=== PATIENT | female | born 1990 ===

== ENCOUNTER 2023-11-14 14:33 | Inpatient (IN) | payer MEDICAID, OTHER ==
[2023-11-14] MEDS ORDERED: MAGNESIUM HYDROXIDE 2,400 MG/30 ML CUP PO PRN (15:24)
[2023-11-14] MEDS ORDERED: haloperidoL 5 MG TAB PO PRN (18:17)
[2023-11-14] MEDS ORDERED: LORazepam 2 MG/ML INJ IM PRN (18:17)
[2023-11-14] MEDS ORDERED: HALOPERIDOL LACTATE 5 MG/ML 1 ML VIAL IM PRN (18:17)
[2023-11-14] MEDS ORDERED: ALBUTEROL HFA INHALER INHALATION PRN (18:17)
[2023-11-14] MEDS: LORazepam 1 MG TAB PO PRN (23:34)
[2023-11-14] MEDS: IBUPROFEN 800 MG TAB PO PRN (23:34)
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
[2023-11-15] MEDS ORDERED: HALOPERIDOL LACTATE 5 MG/ML 1 ML VIAL IM PRN (09:39)
[2023-11-15] MEDS: hydrOXYzine HCL 25 MG TAB PO PRN (09:56)
[2023-11-15] MEDS: NICOTINE 21MG/24HR PATCH TRANSDERM SCH (10:34)
[2023-11-15] MEDS: ACETAMINOPHEN TAB 325 MG TAB PO PRN (10:51)
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
[2023-11-15 11:49] LABS: Basophils # (A) 0.1 k/uL (0-0.2); Basophils % (A) 1 %; Eosinophils # (A) 0.2 k/uL (0-0.7); Eosinophils % (A) 1 %; HCT 42.6 % (34.0-46.0); HGB 12.8 gm/dL (11.4-16.0); Hypochromasia Slight; Lymphocytes # (A) 3.3 k/uL (1.0-4.8); Lymphocytes % (A) 27 %; MCH 24.9 pg (25.0-35.0); MCHC 30.1 g/dL (31.0-37.0); MCV 82.6 fL (80.0-100.0); Mean Platelet Volume 7.7; Monocytes # (A) 0.6 k/uL (0-1.0); Monocytes % (A) 5 %; Neutrophils # (A) 7.7 k/uL (1.3-7.7); Neutrophils % (A) 64 %; Platelet Count 725 k/uL (150-450); RBC 5.16 m/uL (3.80-5.40); RDW 15.2 % (11.5-15.5); WBC 12.1 k/uL (3.8-10.6)
[2023-11-15 12:04] LABS: ALT 78 U/L (4-34); AST 59 U/L (14-36); African American GFR (CKD) >90 (>60 ml/min/1.73 sqM); Albumin 4.5 g/dL (3.5-5.0); Alkaline Phosphatase 103 U/L (38-126); Anion Gap 9 mmol/L; Blood Urea Nitrogen 11 mg/dL (7-17); Calcium 10.1 mg/dL (8.4-10.2); Carbon Dioxide 25 mmol/L (22-30); Chloride 104 mmol/L (98-107); Glucose 61 mg/dL (74-99); Non-African American GFR(CKD) >90 (>60 ml/min/1.73 sqM); Potassium 4.6 mmol/L (3.5-5.1); Sodium 138 mmol/L (137-145); Total Bilirubin 0.3 mg/dL (0.2-1.3); Total Protein 7.8 g/dL (6.3-8.2)
[2023-11-15] MEDS: METHADONE 10 MG TAB PO SCH (12:38)
[2023-11-15] MEDS ORDERED: hydrOXYzine HCL 25 MG TAB PO SCH (13:00)
[2023-11-15 20:54] LABS: Chol/HDL Ratio 4.82 Ratio; LDL Cholesterol,Calculated 155.9 mg/dL (0.0-131.0)
[2023-11-16] MEDS: VENLAFAXINE HCL 75 MG TAB PO SCH ×2 (08:31→17:10)
[2023-11-16] MEDS: MAG HYDROX/AL HYDROX/SIMETH 355 ML BOTTLE PO PRN (13:01)
[2023-11-16] MEDS ORDERED: VENLAFAXINE HCL 75 MG TAB PO SCH (21:00)
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
--- NOTE | 2023-11-18 09:09 | P.PN ---
Subjective Progress Note Date: 11/18/23 Principal diagnosis: Diagnosis: Major Depressive Disorder, recurrent. Rule out intermittent explosive disorder Personality disorder with borderline traits Subjective data: The patient was seen chart was reviewed and case discussed with the nursing staff Patient reports that she is doing much better and she said that she has no thoughts of wanting to hurt self and that her thoughts are staying much more positive She said that she is thinking about going into the [employer] driving course and cannot wait to get started She states that she is feeling much better emotionally Patient also has been helping another patient where she has been bathing hair of other younger patient Affect appears to be fair interacts fairly well no overt psychosis noted MSE: Alert and attentive. Orientation times three Dressed and Groomed: Appropriately. Pleasant and cooperative. Psychomotor Activity: Normal. Speech: Normal in tone, quality, and quantity. Mood: Anxious. Affect: Consistent with mood. SI or HI: None. Perceptual disturbance: None. Thought Content: No paranoia or other delusional thinking noted. Thought Process: Normal. Cognition: Intact Judgment and Insight: Improving slightly Plan and Recommendations: Effexor 75 mg po daily, Hydroxyzine 25 mg po qid prn for anxiety, reduce Haldol to 2 mg, d/c Ativan. Monitor MS and side effects of medications and adjust medications accordingly. Provide supportive psychotherapy and psychoeducation. The patient provided psychoeducation. The patient provided with substance abuse counselling and advised to attend AA/NA Smoke cessation therapy. The patient to attend [facility]. Dameon Ashford MD Objective - Vital Signs Vital signs: Vital Signs Temp 97.2 F L 11/18/23 08:24 Pulse 107 H 11/18/23 08:24 Resp 16 11/18/23 08:24 BP 116/65 11/18/23 08:24 Pulse Ox 99 11/17/23 06:00 FiO2 - Labs CBC & Chem 7: 11/15/23 09:51 11/15/23 09:51
--- NOTE | 2023-11-19 21:50 | P.PN ---
Progress Note - Text Progress Note Date: 11/19/23 Follow-up Mediation Review Chief Complaint: I have jitters after taking Effexor Subjective: The patient noted that she gets anxiety and jitters after taking Effexor. She has to take Hydroxyzine with it to slow her down. She also has difficulty sleeping. The patient has been noted to be hyper and hyperalkaline. The patient was given [place] at age 19. She stated that it helped her but made me zombie, went south and became suicidal. Suggested to discontinue Effexor due possible activating syndrome from Effexor or switch to mild manic symptoms. The patient agreed. Discussed alternated antidepressant. The patient agreed for Paxil after considering the risk/benefits and side effects. Also, Suggested Depakote for mood stabilizing. The patient consented. The patient has been attending the groups. The participation is good. The interaction with staff and peers is good. The patient is compliant with treatment recommendations. Leading questions: The patient admitted to Depression and Anxiety. Denied SI or HI. Denied symptoms consistent with psychosis Sleep and Appetite: Sleep fair to poor. Appetite fine. Change in family/ living/job/financial/daily routine: No change. Change in medical condition: No change. Change in medications: d/c Effexor. Add Paxil and Depakote. Side effects from Medications: None. Objective- MSE: Alert and attentive. Orientation times three. Dressed and Groomed: Appropriately. Pleasant and cooperative. Psychomotor Activity: Normal. Speech: Normal in tone, quality, and hyperverbal with mild push of speech. Mood: Anxious and depressed. Affect: Labile. SI or HI: None. Perceptual disturbance: None. Thought Content: No paranoia or other delusional thinking noted. Thought Process: Normal. Cognition: Intact Judgment and Insight: Fair. AIMS: Normal. Labs: No new labs. Diagnosis: Plan and Recommendations: Continue current Medications. Add Paxil 10 mg po qd. Depakote 250 mg bid. Monitor MS and side effects of medications and adjust medications accordingly. Provide supportive psychotherapy. The patient provided psychoeducation and advised The patient provided Substance abuse counseling. Smoke cessation therapy. The patient to attend newman activities. Medication Consent with explanation of risk/benefits and side effects: Explained and obtained.
[2023-11-20 07:01] VITALS: BP 132/83; PULSE 88; RESP 20; TEMP 97.7
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
[2023-11-20] MEDS ORDERED: DIVALPROEX ER 250 MG TAB.ER.24H PO SCH (21:00)
[2023-11-21] MEDS ORDERED: VENLAFAXINE HCL 75 MG TAB PO SCH (09:00)
== END 2023-11-20 12:24 | disposition home or self-care (01) | DRG 751 ==
LOC: 3MHU 23:02
PROVIDERS: ADMIT Psychiatry & Neurology Psychiatry; ATTEND Psychiatry & Neurology Psychiatry
DX: F33.2 Major depressive disorder, recurrent severe without psychotic features (principal); X78.1XXD Intentional self-harm by knife, subsequent encounter; F60.3 Borderline personality disorder; F41.9 Anxiety disorder, unspecified; F17.210 Nicotine dependence, cigarettes, uncomplicated; F14.10 Cocaine abuse, uncomplicated; F12.10 Cannabis abuse, uncomplicated; F11.10 Opioid abuse, uncomplicated; F10.10 Alcohol abuse, uncomplicated; Z56.0 Unemployment, unspecified; S36.113D Laceration of liver, unspecified degree, subsequent encounter; Z63.0 Problems in relationship with spouse or partner; Z88.0 Allergy status to penicillin; Z28.310 Unvaccinated for COVID-19; Z88.6 Allergy status to analgesic agent; Z79.899 Other long term (current) drug therapy; Z71.41 Alcohol abuse counseling and surveillance of alcoholic; Z71.6 Tobacco abuse counseling; Z71.51 Drug abuse counseling and surveillance of drug abuser
CPT/HCPCS: 80053; 80061; 83036; 84443; 85025; 93005